=== PATIENT | female | born 1955 | race Caucasian/White ===

== ENCOUNTER 2023-08-14 14:10 | Emergency (ER) | payer OTHER, MEDICAID ==
[~2023-08-14] VITALS: Ht 157.5 cm; Wt 52.2 kg
[2023-08-14 15:04] VITALS: BP_SYST 84; PULSE 120; RESP 19; TEMP 99; O2SAT 99
[2023-08-14] MEDS: NACL 0.9% 1,000 ML IV ONE ×2 (15:20→17:26)
[2023-08-14 16:06] LABS: BASOPHILS % (AUTO) 0.2 % (0.0-2.0); EOSINOPHILS % (AUTO) 0.1 % (0.0-4.0); HEMATOCRIT 31.1 % (36-48); HEMOGLOBIN 10.4 g/dL (12.0-16.0); LYMPHOCYTES # (AUTO) 0.5 K/uL (1.0-5.5); LYMPHOCYTES % (AUTO) 3.4 % (20.5-51.5); MEAN CORPUSCULAR HEMOGLOBIN 31 pg (27-31); MEAN CORPUSCULAR HGB CONC 34 % (32-36); MEAN CORPUSCULAR VOLUME 93 fL (79.0-98.0); MONOCYTES # (AUTO) 1.9 K/uL (0.0-1.0); MONOCYTES % (AUTO) 13.3 % (1.7-9.3); PLATELET COUNT (AUTO) 433 K/uL (130-430); RED BLOOD CELL COUNT(AUTO) 3.33 MIL/uL (4.2-6.2); RED CELL DISTRIBUTION WIDTH 19.8 % (9.0-15.0); WHITE BLOOD COUNT (AUTO) 14.5 K/uL (4.8-10.8)
[2023-08-14 16:10] LABS: ANION GAP 12 (5-15); CALCIUM 8.4 mg/dL (8.4-11.0); CARBON DIOXIDE 23 mmol/L (23-29); CHLORIDE 96 mmol/L (98-107); GFR AFRICAN AMERICAN 57 mL/min (>90); GLUCOSE 150 mg/dL (74-106); POTASSIUM 4.3 mmol/L (3.5-5.1); SODIUM SERUM 131 mmol/L (136-145); UREA NITROGEN, BLOOD 23 mg/dL (8-21)
[2023-08-14 16:11] LABS: GFR NON AFRICAN-AMERICAN 47 mL/min (>90)
[2023-08-14 16:15] LABS: INR 1.1 (0.8-1.2); PROTHROMBIN TIME 11.4 SECS (9.5-12.5)
[2023-08-14 16:53] LABS: AMYLASE 20 U/L (0-100); ASPARTATE AMINOTRANSFERASE 22 U/L (10-37); BILIRUBIN,DIRECT 0.2 mg/dL (0.0-0.3); LIPASE 23 U/L (16-77); TOTAL BILIRUBIN 0.6 mg/dL (0.0-1.0); TOTAL PROTEIN, SERUM 6.7 g/dL (6.4-8.3)
[2023-08-14 17:06] LABS: ALANINE AMINOTRANSFERASE 42 U/L (12-78); ALBUMIN 2.9 g/dL (3.4-4.8)
[2023-08-14 17:19] LABS: BILIRUBIN,URINE NEGATIVE (NEGATIVE); BLOOD, URINE 1+ (NEGATIVE); CLARITY/URINE CLEAR (CLEAR); COLOR,URINE YELLOW (YELLOW); GLUCOSE,URINE NEGATIVE (NEGATIVE); KETONES,URINE NEGATIVE (NEGATIVE); LEUKOCYTE ESTERASE ,URINE 3+ (NEGATIVE); NITRITE, URINE NEGATIVE (NEGATIVE); PROTEIN URINE 1+ (NEGATIVE); UROBILINOGEN,URINE 0.2 (0.2-1.0)
[2023-08-14 17:38] LABS: BACTERIA,URINE MODERATE /HPF (None Seen); RBC,URINE >100 /HPF (0-3); WBC,URINE >100 /HPF (0-3)
[2023-08-14] MEDS ORDERED: IBUP-1969 PO (17:39)
[2023-08-14] MEDS ORDERED: NITR-85 PO (17:39)
[2023-08-14] MEDS ORDERED: cefTRIAXone 1 GM VIAL ONE (18:05)
[2023-08-14] MEDS: cefTRIAXone 1 GM in D5W 50 ML IV ONE (18:10)
[2023-08-14 18:59] VITALS: BP_SYST 117; PULSE 96; RESP 18; TEMP 97.8; O2SAT 96
== END 2023-08-14 18:59 | disposition home or self-care (01) ==
LOC: SED 14:10
DX: N12 Tubulo-interstitial nephritis, not specified as acute or chronic (principal); E11.9 Type 2 diabetes mellitus without complications; I10 Essential (primary) hypertension; E86.0 Dehydration; R79.1 Abnormal coagulation profile; Z79.899 Other long term (current) drug therapy
CPT/HCPCS: 99285; 74176; 96365; 96361; 80076; 80048; 81001; 82150; 83690; 85025; 85610; 85730; 87086; 84484; 36415; 76376; 83605; 82397; J0696; J7030; 81000; 81015

== ENCOUNTER 2023-09-03 09:53 | Inpatient (IN) | payer OTHER, MEDICAID ==
[~2023-09-03] VITALS: Ht 157.5 cm; Wt 52.2 kg
[~2023-09-03 09:53] MED LIST: IBUP-1969 PO; NITR-85 PO
[2023-09-03 10:09] VITALS: BP_SYST 122; PULSE 109; RESP 17; TEMP 97.2; O2SAT 100
[2023-09-03] MEDS: NS 1000 ML IV.SOLN IV ONE (10:27)
[2023-09-03 10:30] LABS: BASOPHILS % (AUTO) 0.3 % (0.0-2.0); EOSINOPHILS % (AUTO) 0.1 % (0.0-4.0); HEMATOCRIT 34.5 % (36-48); HEMOGLOBIN 11.3 g/dL (12.0-16.0); LYMPHOCYTES # (AUTO) 0.8 K/uL (1.0-5.5); LYMPHOCYTES % (AUTO) 4.4 % (20.5-51.5); MEAN CORPUSCULAR HEMOGLOBIN 31 pg (27-31); MEAN CORPUSCULAR HGB CONC 33 % (32-36); MEAN CORPUSCULAR VOLUME 94 fL (79.0-98.0); MONOCYTES # (AUTO) 1.5 K/uL (0.0-1.0); MONOCYTES % (AUTO) 8.3 % (1.7-9.3); NEUTROPHILS # (AUTO) 15.5 K/uL (1.8-7.7); NEUTROPHILS % (AUTO) 86.9 % (40.0-70.0); PLATELET COUNT (AUTO) 539 K/uL (130-430); RED BLOOD CELL COUNT(AUTO) 3.68 MIL/uL (4.2-6.2); WHITE BLOOD COUNT (AUTO) 17.8 K/uL (4.8-10.8)
[2023-09-03 10:55] LABS: ANION GAP 9 (5-15); CARBON DIOXIDE 28 mmol/L (23-29); CHLORIDE 104 mmol/L (98-107); CREATININE 1.07 mg/dL (0.55-1.30); GFR AFRICAN AMERICAN 65 mL/min (>90); GLUCOSE 146 mg/dL (74-106); POTASSIUM 3.7 mmol/L (3.5-5.1); SODIUM SERUM 141 mmol/L (136-145); UREA NITROGEN, BLOOD 20 mg/dL (8-21)
[2023-09-03 11:02] LABS: ALANINE AMINOTRANSFERASE 54 U/L (12-78); ALBUMIN 3.3 g/dL (3.4-4.8); ASPARTATE AMINOTRANSFERASE 44 U/L (10-37); BILIRUBIN,DIRECT 0.2 mg/dL (0.0-0.3); TOTAL BILIRUBIN 0.8 mg/dL (0.0-1.0); TOTAL PROTEIN, SERUM 7.1 g/dL (6.4-8.3)
[2023-09-03 11:06] LABS: GFR NON AFRICAN-AMERICAN 54 mL/min (>90)
[2023-09-03] MEDS ORDERED: cefTRIAXone 2 GM VIAL ONE ×2 (11:35)
[2023-09-03 11:41] LABS: BILIRUBIN,URINE NEGATIVE (NEGATIVE); CLARITY/URINE SL CLOUDY (CLEAR); COLOR,URINE YELLOW (YELLOW); GLUCOSE,URINE NEGATIVE (NEGATIVE); KETONES,URINE NEGATIVE (NEGATIVE); LEUKOCYTE ESTERASE ,URINE 3+ (NEGATIVE); NITRITE, URINE POSITIVE (NEGATIVE); PROTEIN URINE NEGATIVE (NEGATIVE); UROBILINOGEN,URINE 0.2 (0.2-1.0)
[2023-09-03 11:42] LABS: BLOOD, URINE TRACE (NEGATIVE)
[2023-09-03 11:51] LABS: BACTERIA,URINE MODERATE /HPF (None Seen); MUCUS,URINE 1+ /LPF (None Seen); WBC,URINE 50-80 /HPF (0-3)
[2023-09-03] MEDS ORDERED: METF-1069 PO (13:54)
[2023-09-03] MEDS ORDERED: CAPT25TA3 (13:56)
[2023-09-03] MEDS ORDERED: OMEP20CA15 PO (13:57)
[2023-09-03] MEDS ORDERED: PRED5TAB PO (13:57)
[2023-09-03] MEDS: NS IV SCH (17:05)
[2023-09-03] MEDS: ERTAPENEM SODIUM IV SCH (17:05)
[2023-09-03 17:20] VITALS: BP_SYST 130; PULSE 107; RESP 16; TEMP 98.7; O2SAT 98
[2023-09-03 19:00] VITALS: BP_SYST 104; PULSE 86; RESP 20; TEMP 97.5; O2SAT 97
[2023-09-03 20:00] VITALS: BP_SYST 104; PULSE 86; RESP 20; TEMP 97.5; O2SAT 97
[2023-09-04] VITALS (7 sets, daily range): BP systolic 107–138; PULSE 83–110; RESP 16–20; TEMP 96.2–99.7; O2SAT 94–100
[2023-09-04 10:30] LABS: BASOPHILS % (AUTO) 0.3 % (0.0-2.0); EOSINOPHILS # (AUTO) 0.1 K/uL (0.0-0.4); EOSINOPHILS % (AUTO) 1.1 % (0.0-4.0); HEMATOCRIT 30.7 % (36-48); HEMOGLOBIN 10.1 g/dL (12.0-16.0); LYMPHOCYTES # (AUTO) 1.1 K/uL (1.0-5.5); LYMPHOCYTES % (AUTO) 9.5 % (20.5-51.5); MEAN CORPUSCULAR HEMOGLOBIN 31 pg (27-31); MEAN CORPUSCULAR HGB CONC 33 % (32-36); MEAN CORPUSCULAR VOLUME 94 fL (79.0-98.0); MONOCYTES # (AUTO) 1.7 K/uL (0.0-1.0); NEUTROPHILS # (AUTO) 8.3 K/uL (1.8-7.7); NEUTROPHILS % (AUTO) 74.1 % (40.0-70.0); PLATELET COUNT (AUTO) 436 K/uL (130-430); RED BLOOD CELL COUNT(AUTO) 3.25 MIL/uL (4.2-6.2); WHITE BLOOD COUNT (AUTO) 11.3 K/uL (4.8-10.8)
[2023-09-04] MEDS ORDERED: ENAL-79 PO (12:16)
[2023-09-04] MEDS ORDERED: METF-381 PO (12:16)
[2023-09-04] MEDS ORDERED: ERTAPENEM SODIUM 0.5 GM in NS 50 ML IV SCH (15:00)
[2023-09-04] MEDS: MEROPENEM 1 GM in NS 100 ML IV SCH (21:31)
[2023-09-05] VITALS (7 sets, daily range): BP systolic 106–119; PULSE 87–106; RESP 15–20; TEMP 97–98.2; O2SAT 95–98
[2023-09-05 05:50] LABS: BASOPHILS % (AUTO) 0.3 % (0.0-2.0); EOSINOPHILS # (AUTO) 0.1 K/uL (0.0-0.4); HEMATOCRIT 30.7 % (36-48); HEMOGLOBIN 10.2 g/dL (12.0-16.0); LYMPHOCYTES # (AUTO) 0.9 K/uL (1.0-5.5); LYMPHOCYTES % (AUTO) 12.8 % (20.5-51.5); MEAN CORPUSCULAR HEMOGLOBIN 31 pg (27-31); MEAN CORPUSCULAR HGB CONC 33 % (32-36); MEAN CORPUSCULAR VOLUME 93 fL (79.0-98.0); MONOCYTES # (AUTO) 1.5 K/uL (0.0-1.0); MONOCYTES % (AUTO) 20.6 % (1.7-9.3); NEUTROPHILS # (AUTO) 4.8 K/uL (1.8-7.7); NEUTROPHILS % (AUTO) 65.3 % (40.0-70.0); PLATELET COUNT (AUTO) 430 K/uL (130-430); WHITE BLOOD COUNT (AUTO) 7.3 K/uL (4.8-10.8)
[2023-09-05 05:57] LABS: CALCIUM 8.4 mg/dL (8.4-11.0); CREATININE 0.89 mg/dL (0.55-1.30); POTASSIUM 3.4 mmol/L (3.5-5.1)
[2023-09-06] VITALS: BP_SYST 106; PULSE 85; RESP 18; TEMP 98.4; O2SAT 96
[2023-09-06 04:00] VITALS: PULSE 71; RESP 18
[2023-09-06 08:15] VITALS: BP_SYST 120; PULSE 94; RESP 18; TEMP 97.8; O2SAT 99
[2023-09-06 08:18] VITALS: O2SAT 99
[2023-09-06 11:21] VITALS: BP_SYST 118; PULSE 71; RESP 16; TEMP 97.4; O2SAT 98
[2023-09-06 15:20] VITALS: BP_SYST 108; PULSE 89; RESP 15; TEMP 97.7; O2SAT 100
[2023-09-07 00:13] VITALS: BP_SYST 117; PULSE 90; RESP 17; TEMP 98.1; O2SAT 99
[2023-09-07 06:52] LABS: BASOPHILS % (AUTO) 0.6 % (0.0-2.0); EOSINOPHILS # (AUTO) 0.3 K/uL (0.0-0.4); EOSINOPHILS % (AUTO) 4.5 % (0.0-4.0); HEMATOCRIT 33.9 % (36-48); HEMOGLOBIN 11.2 g/dL (12.0-16.0); LYMPHOCYTES % (AUTO) 30.8 % (20.5-51.5); MEAN CORPUSCULAR HEMOGLOBIN 31 pg (27-31); MEAN CORPUSCULAR HGB CONC 33 % (32-36); MEAN CORPUSCULAR VOLUME 95 fL (79.0-98.0); MONOCYTES # (AUTO) 1.2 K/uL (0.0-1.0); NEUTROPHILS # (AUTO) 2.9 K/uL (1.8-7.7); NEUTROPHILS % (AUTO) 46.1 % (40.0-70.0); PLATELET COUNT (AUTO) 541 K/uL (130-430); RED BLOOD CELL COUNT(AUTO) 3.57 MIL/uL (4.2-6.2); RED CELL DISTRIBUTION WIDTH 20.2 % (9.0-15.0); WHITE BLOOD COUNT (AUTO) 6.4 K/uL (4.8-10.8)
[2023-09-07 06:57] LABS: CREATININE 0.93 mg/dL (0.55-1.30); POTASSIUM 4.2 mmol/L (3.5-5.1)
[2023-09-07 08:00] VITALS: BP_SYST 110; PULSE 88; RESP 18; TEMP 98; O2SAT 98
[2023-09-07 11:18] VITALS: BP_SYST 147; PULSE 98; RESP 16; TEMP 96.3; O2SAT 94
[2023-09-07 15:16] VITALS: BP_SYST 125; PULSE 95; RESP 16; TEMP 96.8; O2SAT 99
[2023-09-07 19:45] VITALS: BP_SYST 137; PULSE 90; RESP 18; TEMP 98.6; O2SAT 98
[2023-09-07 20:15] VITALS: O2SAT 98
[2023-09-08] VITALS (7 sets, daily range): BP systolic 119–142; PULSE 16–95; RESP 16–20; TEMP 97.3–98.8; O2SAT 79–100
[2023-09-08 06:10] LABS: BASOPHILS % (AUTO) 0.4 % (0.0-2.0); EOSINOPHILS # (AUTO) 0.3 K/uL (0.0-0.4); EOSINOPHILS % (AUTO) 5.7 % (0.0-4.0); HEMATOCRIT 32.4 % (36-48); HEMOGLOBIN 10.8 g/dL (12.0-16.0); LYMPHOCYTES # (AUTO) 1.6 K/uL (1.0-5.5); LYMPHOCYTES % (AUTO) 30.6 % (20.5-51.5); MEAN CORPUSCULAR HEMOGLOBIN 31 pg (27-31); MEAN CORPUSCULAR HGB CONC 33 % (32-36); MEAN CORPUSCULAR VOLUME 94 fL (79.0-98.0); MONOCYTES # (AUTO) 1.1 K/uL (0.0-1.0); MONOCYTES % (AUTO) 20.8 % (1.7-9.3); NEUTROPHILS # (AUTO) 2.2 K/uL (1.8-7.7); NEUTROPHILS % (AUTO) 42.5 % (40.0-70.0); PLATELET COUNT (AUTO) 505 K/uL (130-430); RED BLOOD CELL COUNT(AUTO) 3.45 MIL/uL (4.2-6.2); RED CELL DISTRIBUTION WIDTH 19.9 % (9.0-15.0); WHITE BLOOD COUNT (AUTO) 5.1 K/uL (4.8-10.8)
[2023-09-08 06:30] LABS: CALCIUM 8.4 mg/dL (8.4-11.0); CREATININE 0.95 mg/dL (0.55-1.30); POTASSIUM 4.2 mmol/L (3.5-5.1)
[2023-09-08] MEDS: ERTAPENEM SODIUM 1 GM in NS 50 ML IV SCH (14:30)
[2023-09-09 00:01] VITALS: BP_SYST 119; PULSE 95; RESP 18; TEMP 97.9; O2SAT 96
[2023-09-09 06:46] LABS: BASOPHILS % (AUTO) 0.7 % (0.0-2.0); EOSINOPHILS # (AUTO) 0.4 K/uL (0.0-0.4); EOSINOPHILS % (AUTO) 6.9 % (0.0-4.0); HEMATOCRIT 33.4 % (36-48); HEMOGLOBIN 11.1 g/dL (12.0-16.0); LYMPHOCYTES # (AUTO) 1.6 K/uL (1.0-5.5); LYMPHOCYTES % (AUTO) 29.4 % (20.5-51.5); MEAN CORPUSCULAR HEMOGLOBIN 31 pg (27-31); MEAN CORPUSCULAR HGB CONC 33 % (32-36); MEAN CORPUSCULAR VOLUME 93 fL (79.0-98.0); MONOCYTES # (AUTO) 1.2 K/uL (0.0-1.0); MONOCYTES % (AUTO) 21.3 % (1.7-9.3); NEUTROPHILS # (AUTO) 2.3 K/uL (1.8-7.7); NEUTROPHILS % (AUTO) 41.7 % (40.0-70.0); PLATELET COUNT (AUTO) 537 K/uL (130-430); RED BLOOD CELL COUNT(AUTO) 3.58 MIL/uL (4.2-6.2); RED CELL DISTRIBUTION WIDTH 20.3 % (9.0-15.0); WHITE BLOOD COUNT (AUTO) 5.5 K/uL (4.8-10.8)
[2023-09-09 06:49] LABS: ALBUMIN 2.8 g/dL (3.4-4.8); CALCIUM 8.5 mg/dL (8.4-11.0); CREATININE 0.86 mg/dL (0.55-1.30); POTASSIUM 4.2 mmol/L (3.5-5.1); TOTAL BILIRUBIN 0.2 mg/dL (0.0-1.0); TOTAL PROTEIN, SERUM 6.9 g/dL (6.4-8.3)
[2023-09-09 06:51] LABS: HEMOGLOBIN A1C 6.06 % (<5.7)
[2023-09-09 08:00] VITALS: BP_SYST 133; PULSE 93; RESP 16; TEMP 97; O2SAT 99
[2023-09-09 11:03] VITALS: BP_SYST 122; PULSE 93; RESP 16; TEMP 97.9; O2SAT 99
[2023-09-09 15:36] VITALS: BP_SYST 130; PULSE 99; RESP 16; TEMP 96.4; O2SAT 100
[2023-09-09 16:56] VITALS: BP_SYST 130; PULSE 99; RESP 16; TEMP 96.4; O2SAT 100
== END 2023-09-09 17:50 | disposition home or self-care (01) | DRG 872 ==
LOC: SED 09:53 → STU 13:27 → SMU 09-06 12:29
PROVIDERS: ADMIT Specialist; ATTEND Specialist
DX: A41.9 Sepsis, unspecified organism (principal); N39.0 Urinary tract infection, site not specified; E87.20 Acidosis, unspecified; R65.20 Severe sepsis without septic shock; E11.9 Type 2 diabetes mellitus without complications; I10 Essential (primary) hypertension; Z88.0 Allergy status to penicillin; Z79.84 Long term (current) use of oral hypoglycemic drugs; Z79.899 Other long term (current) drug therapy; B96.20 Unspecified Escherichia coli [E. coli] as the cause of diseases classified elsewhere
CPT/HCPCS: 36415; 71045; 80048; 80053; 80076; 81000; 81001; 81015; 82948; 83037; 83605; 84484; 85025; 87040; 87086; 93005; 96361; 96365; 99291; G0378; J0696; J1335; J2185